=== PATIENT | female | born 1965 | race Caucasian/White ===

== ENCOUNTER → 2016-07-06 | Outpatient (CLI) | payer OTHER | LOC: BHSO 10:56 | DX: F33.1 Major depressive disorder, recurrent, moderate (principal) | CPT/HCPCS: 90791-AI ==

== ENCOUNTER → 2016-08-14 | Outpatient (CLI) | payer OTHER | LOC: BHSO 14:00 | DX: F41.1 Generalized anxiety disorder (principal) ==

== ENCOUNTER → 2016-09-15 | Outpatient (CLI) | payer OTHER | LOC: BHSO 14:34 | DX: F33.1 Major depressive disorder, recurrent, moderate (principal) ==

== ENCOUNTER → 2016-11-17 | Outpatient (CLI) | payer OTHER | LOC: BHSO 14:04 | DX: F33.42 Major depressive disorder, recurrent, in full remission (principal) ==

== ENCOUNTER → 2017-02-12 | Outpatient (CLI) | payer OTHER | LOC: BHSO 14:42 | DX: F41.1 Generalized anxiety disorder (principal) ==

== ENCOUNTER 2017-06-21 12:55 | Outpatient (RCR) | payer OTHER | END 2017-07-11 15:06 | disposition home or self-care (01) | LOC: WSOH 12:55 | DX: G56.01 Carpal tunnel syndrome, right upper limb (principal); G56.02 Carpal tunnel syndrome, left upper limb; Z87.891 Personal history of nicotine dependence ==

== ENCOUNTER 2017-07-13 13:44 | Outpatient (RCR) | payer OTHER | END 2017-10-11 | disposition home or self-care (01) | LOC: WSOH | DX: G56.01 Carpal tunnel syndrome, right upper limb (principal); G56.02 Carpal tunnel syndrome, left upper limb; M77.11 Lateral epicondylitis, right elbow; X50.3XXA Overexertion from repetitive movements, initial encounter; Y99.0 Civilian activity done for income or pay; Z87.891 Personal history of nicotine dependence; Z79.899 Other long term (current) drug therapy | CPT/HCPCS: J1030 ==

== ENCOUNTER → 2017-08-14 | Outpatient (CLI) | payer OTHER | LOC: BHSO 14:44 | DX: F41.1 Generalized anxiety disorder (principal) | CPT/HCPCS: G0463 ==

== ENCOUNTER → 2018-05-27 | Outpatient (CLI) | payer OTHER | LOC: BHSO 14:24 | DX: F33.42 Major depressive disorder, recurrent, in full remission (principal) | CPT/HCPCS: G0463 ==

== ENCOUNTER → 2018-11-25 | Outpatient (CLI) | payer OTHER | LOC: BHSO 14:00 | DX: F41.1 Generalized anxiety disorder (principal) | CPT/HCPCS: G0463 ==

== ENCOUNTER 2019-10-29 14:14 | Outpatient (RCR) | payer OTHER | END 2019-11-19 | disposition home or self-care (01) | LOC: WSOH | DX: S60.222A Contusion of left hand, initial encounter (principal); G56.03 Carpal tunnel syndrome, bilateral upper limbs; M77.11 Lateral epicondylitis, right elbow; M77.12 Lateral epicondylitis, left elbow; Z90.710 Acquired absence of both cervix and uterus; Z98.890 Other specified postprocedural states; Y99.0 Civilian activity done for income or pay ==